=== PATIENT | female | born 1980 | race Caucasian/White ===

== ENCOUNTER 2019-07-04 13:12 | Outpatient (CLI) | payer OTHER ==
[2019-07-04 17:54] LABS: THYROID STIMULATING HORMONE 0.69 uIU/mL (0.34-5.60)
[2019-07-04 17:57] LABS: FREE T4 (FREE THYROXINE) 0.62 ng/dL (0.58-1.64)
== END 2019-07-04 13:13 | disposition home or self-care (01) ==
LOC: LAB.S 13:12
PROVIDERS: ATTEND Naturopath
DX: E03.9 Hypothyroidism, unspecified (principal); Z11.59 Encounter for screening for other viral diseases
CPT/HCPCS: 36415; 84439; 84443; 84481; 86765

== ENCOUNTER 2020-11-02 10:11 | Outpatient (CLI) | payer OTHER ==
[2020-11-02 15:59] LABS: THYROID STIMULATING HORMONE 1.86 uIU/mL (0.34-5.60)
[2020-11-02 16:00] LABS: FREE T3 4.17 pg/mL (2.5-3.9)
== END 2020-11-02 10:12 | disposition home or self-care (01) ==
LOC: LAB.S 10:11
PROVIDERS: ATTEND Naturopath
DX: E06.3 Autoimmune thyroiditis (principal); R53.83 Other fatigue; E89.0 Postprocedural hypothyroidism
CPT/HCPCS: 36415; 81599; 83520; 84443; 84445; 84481

== ENCOUNTER 2023-12-31 07:00 | Outpatient (CLI) | payer OTHER | END 2023-12-31 23:59 | disposition home or self-care (01) | LOC: LAB.S 07:00 | PROVIDERS: ATTEND Registered Nurse | DX: R07.0 Pain in throat (principal) | CPT/HCPCS: 87070 ==